=== PATIENT | female | born 1945 | race Caucasian/White ===

== ENCOUNTER 2024-04-21 06:31 | Day surgery (SDC) | payer MEDICARE, SELFPAY ==
[2024-04-19 15:08] VITALS: BMI 28.1
--- NOTE | 2024-04-20 07:00 | EKG_ITS ---
[facility] Test Date: 2024-04-20 Pat Name: CHARLOTTE YUSUF Department: Room: - Gender: Female Tong Carrier: BAMBI : 1945 Requested By: Jomar Krishnan Order Number: [id number] Reading MD: Jomar Krishnan Measurements Intervals [place] Rate: 65 P: FL: QRS: -90 QRSD: 168 T: 57 QT: 500 QTc: 521 Interpretive Statements ELECTRONIC VENTRICULAR PACEMAKER ABNORMAL RHYTHM ECG Compared to ECG 02/07/2024 12:44:39 Atrial-paced complex(es) or rhythm no longer present /store/S0/[id number]/ecg/[id number].pdf
[2024-04-20 13:15] LABS: Basophils # (Auto) 0.1 Thou/mm3 (0.0-0.2); Basophils % (Auto) 1 % (0-2.5); Eosinophils # (Auto) 0.7 Thou/mm3 (0.0-0.5); Eosinophils % (Auto) 10 % (0-10); Hematocrit 38.1 % (36.0-46.0); Hemoglobin 12.3 g/dL (12.0-16.0); Immature Granulocytes % (Auto) 0 % (0-0); Immature Granulocytes Auto 0.02 Thou/mm3 (0.00-0.00); Lymphocytes # (Auto) 1.3 Thou/mm3 (1.0-4.8); Lymphocytes % (Auto) 19 % (10-50); Mean Corpuscular HGB Conc 32.3 g/dl (31.0-37.0); Mean Corpuscular Hemoglobin 28.8 pg (25.0-35.0); Mean Corpuscular Volume 89 fL (80-100); Monocytes # (Auto) 0.8 Thou/mm3 (0.0-0.8); Monocytes % (Auto) 13 % (0-12); Neutrophils # (Auto) 3.8 Thou/mm3 (1.8-7.7); Neutrophils % (Auto) 57 % (37-80); Nucleated Red Blood Cell % 0 /100 WBC (0); Platelet Count 347 Thou/mm3 (140-440); Red Blood Count 4.27 Miln/mm3 (4.00-5.20); White Blood Count 6.7 Thou/mm3 (3.6-11.0)
[2024-04-20 13:27] LABS: Anion Gap 3 (7-16); BUN/Creatinine Ratio 14 Ratio (12-20); Blood Urea Nitrogen 19 mg/dL (9-23); Calcium 9.3 mg/dL (8.3-10.6); Carbon Dioxide 29.1 mMol/L (20.0-31.0); Chloride 106 mMol/L (98-107); Creatinine (Component) 1.4 mg/dL (0.6-1.3); Estimated Creatinine Clearance 31.7 mL/min (>60); Glucose 108 mg/dL (74-106); Osmolality,Calculated 278 (275-295); Potassium 4.1 mMol/L (3.4-5.1); Sodium 138 mMol/L (136-145); eGFR 38 See Note
[2024-04-20 13:29] LABS: INR 1.1 (0.9-1.3); Partial Thromboplastin Time 27.6 Seconds (22.0-36.0)
[2024-04-21] VITALS (10 sets, daily range): BP systolic 115–137; BP diastolic 51–74; PULSE 60–65; RESP 12–16; TEMP 36.1–36.6; O2SAT 93–99
--- NOTE | 2024-04-21 11:00 | PC.NURSE ---
0943 patient is awake, alert, breathing unlabored s/p pacemaker battery exchange under IV moderate sedation, report received from Baldo BLISS. Patient to recover for 2hrs and finish vancomycin antibiotic. No need for arm sing or post op xray per RN report.
--- NOTE | 2024-04-21 12:00 | PC.NURSE ---
1157 patient is awake, alert, breathing unlabored, dressing dry with no bleeding, patient able to ambulate to bathroom and void, able to tolerate food with no nausea or vomiting, vancomycin antibiotic completed,meets discharge criteria, discharge instructions given to patient and sister Darlene, patient discharged home in wheelchair with all belongings.
--- NOTE | 2024-04-22 17:07 | ESOP_ITS ---
RE: CHARLOTTE YUSUF : 1945 DATE OF OPERATION: 04/21/2024 PROCEDURE PERFORMED: 1. Removal and replacement of permanent pacemaker generator, CPT code 78892. 2. Conscious sedation. DIAGNOSES: Status post permanent pacemaker implantation, sick sinus syndrome, pacemaker , elective replacement indicator battery depletion. HISTORY AND INDICATIONS: The patient is an 79-year-old lady with history of CAD, hypertension, sick sinus syndrome, dual-chamber pacemaker implant, syncopal episode, doing fairly well until recently. The patient is found to have elective replacement indicator battery depletion for permanent pacemaker, hence permanent pacemaker generator removal and replacement recommended under conscious sedation. DESCRIPTION OF PROCEDURE: The patient was brought to operating room in cardiac catheterization laboratory. The patient was given conscious sedation. A timeout was taken. Informed consent was obtained. She was given conscious sedation using a 2 mg Versed and 4 mg morphine sulfate was given for analgesia. Left subclavian area was prepared in sterile fashion and given 1% Xylocaine local anesthesia. Left linear incision was made with blunt dissection. Pocket was opened. The generator was successfully removed and the threshold was found to be excellent. After obtaining satisfactory threshold, the new Medtronic pacemaker generator was attached to the leads, positioned in the pocket and subcutaneous tissue was closed using 2-0 chromic continuous suture. Skin was closed using david. The patient tolerated the procedure well. There were no complications. The patient received a gram of vancomycin because allergies TO PENICILLIN AND KEFLEX. The patient will be discharged home same day following the procedure. SUMMARY: Successful removal and replacement of dual-chamber pacemaker generator. The generator that is removed initially implanted in 2013, Medtronic model number [id number], serial number is [id number]. The pacemaker generator that is implanted today is Medtronic MRI safe Verenice XT, serial number is [id number]. Atrial lead is a Medtronic 4574 and RV _ventricular lead is 4074. The P waves are measured to be 6.9 millivolts. The lead impedance 532 ohms in atrium and threshold 1volts, R waves are measured to be 6.3. Lead impedance 1440 and the threshold 1.5 volts. The pacemaker was programmed to MVP protocol AAIR to DDDR 60-120 beats per minute. DT: 09:24:21 TT: 10:06:00 Ref: [id number] - TID: [id number] MTDD
== END 2024-04-21 11:55 | disposition home or self-care (01) ==
PROVIDERS: PCP Family Medicine; Referring Provider Internal Medicine Cardiovascular Disease; Visit Provider Internal Medicine Cardiovascular Disease
PROC: (CPT 33228; principal; 2024-04-21 08:00)
DX: Z45.010 Encounter for checking and testing of cardiac pacemaker pulse generator [battery] (principal); I10 Essential (primary) hypertension; I25.10 Atherosclerotic heart disease of native coronary artery without angina pectoris; Z01.810 Encounter for preprocedural cardiovascular examination; I49.5 Sick sinus syndrome
CPT/HCPCS: 33228; 36415; 80048; 85025; 85610; 85730; 93005; 99152; 99153; A4649; C1785; J0171; J0461; J0690; J1580; J2250; J2270; J2310; J2371; J3490

== ENCOUNTER 2024-06-14 08:33 | Day surgery (SDC) | payer OTHER, SELFPAY ==
--- NOTE | 2024-06-13 10:47 | EKG_ITS ---
[facility] Test Date: 2024-06-13 Pat Name: CHARLOTTE YUSUF Department: Room: - Gender: Female Director Of Design: RTSJC : 1945 Requested By: Jomar Krishnan Order Number: [id number] Reading MD: Jomar Krishnan Measurements Intervals [place] Rate: 67 P: 133 LA: 192 QRS: -1 QRSD: 104 T: 53 QT: 382 QTc: 404 Interpretive Statements ELECTRONIC ATRIAL PACEMAKER INCOMPLETE RIGHT BUNDLE BRANCH BLOCK ANTEROSEPTAL MYOCARDIAL INFARCTION , OF INDETERMINATE AGE Compared to ECG 04/20/2024 13:46:18 Incomplete right bundle-branch block now present Myocardial infarct finding now present Ventricular-paced complex(es) or rhythm no longer present /store/S0/[id number]/ecg/[id number].pdf
[2024-06-13 11:51] LABS: Basophils # (Auto) 0.1 Thou/mm3 (0.0-0.2); Basophils % (Auto) 1 % (0-2.5); Eosinophils # (Auto) 0.6 Thou/mm3 (0.0-0.5); Eosinophils % (Auto) 10 % (0-10); Hematocrit 34.3 % (36.0-46.0); Hemoglobin 11.1 g/dL (12.0-16.0); Immature Granulocytes % (Auto) 0 % (0-0); Immature Granulocytes Auto 0.01 Thou/mm3 (0.00-0.00); Lymphocytes # (Auto) 0.9 Thou/mm3 (1.0-4.8); Lymphocytes % (Auto) 16 % (10-50); Mean Corpuscular HGB Conc 32.4 g/dl (31.0-37.0); Mean Corpuscular Hemoglobin 28.7 pg (25.0-35.0); Mean Corpuscular Volume 89 fL (80-100); Monocytes # (Auto) 0.7 Thou/mm3 (0.0-0.8); Monocytes % (Auto) 12 % (0-12); Neutrophils # (Auto) 3.6 Thou/mm3 (1.8-7.7); Neutrophils % (Auto) 61 % (37-80); Nucleated Red Blood Cell % 0 /100 WBC (0); Platelet Count 281 Thou/mm3 (140-440); RDW Standard Deviation 47.1 fL (36.4-46.3); Red Blood Count 3.87 Miln/mm3 (4.00-5.20); White Blood Count 5.8 Thou/mm3 (3.6-11.0)
[2024-06-13 11:58] LABS: Anion Gap 8 (7-16); BUN/Creatinine Ratio 22 Ratio (12-20); Blood Urea Nitrogen 28 mg/dL (9-23); Calcium 9.4 mg/dL (8.3-10.6); Carbon Dioxide 29.1 mMol/L (20.0-31.0); Chloride 104 mMol/L (98-107); Creatinine (Component) 1.3 mg/dL (0.6-1.3); Glucose 154 mg/dL (74-106); Osmolality,Calculated 289 (275-295); Potassium 4.5 mMol/L (3.4-5.1); Sodium 141 mMol/L (136-145); eGFR 42 See Note
[2024-06-13 12:07] LABS: INR 1.1 (0.9-1.3); Prothrombin Time 11.6 Seconds (9.0-12.2)
[2024-06-14] VITALS (13 sets, daily range): BP systolic 140–203; BP diastolic 62–115; PULSE 60–74; RESP 10–20; TEMP 36.3–36.5; O2SAT 92–100; BMI 28.3
[2024-06-14] MEDS: SODIUM CHLORIDE 0.9% 1000 ML 500 ML 100 ML IV (11:00)
--- NOTE | 2024-06-14 18:06 | ESOP_ITS ---
RE: CHARLOTTE YUSUF : 1945 DATE OF OPERATION: 06/14/2024 PROCEDURES PERFORMED: 1. Diagnostic left heart cardiac catheterization, selective coronary angiogram, left ventricular angiogram, CPT 43480. 2. Conscious sedation for 30-minute duration. 3. Ultrasound-guided access, right radial artery. 4. Intracoronary ultrasound examination of the left main and left circumflex arteries, CPT 41938. 5. Percutaneous coronary intervention, PTCA, stent placement of the proximal left circumflex artery and placement of drug-eluting stent 4.0 x 12 mm Synergy stent. CPT 69502 Preprocedure stenosis 80%, postprocedure 0%. Preprocedure ARTURO flow 3, postprocedure ARTURO flow 3. DIAGNOSES: Crescendo class 3 angina pectoris with maximum medical management and status post multivessel stent placement. HISTORY AND INDICATIONS: The patient is an 79-year-old lady with known history of CAD, 100% occlusion to RCA with recurrent episode of chest pain, shortness of breath, and class 3 angina pectoris despite maximum medical management and _ emergency coronary angiogram was recommended because of patient's angina for assessment of possible PCI and stent placement. DESCRIPTION OF PROCEDURE: The patient was brought to cardiac catheterization lab where she was given 2 mg of Versed and 100 mcg of fentanyl for sedation. Right radial approach was taken. Right radial artery was cannulated by micropuncture technique. A 6-Portuguese Glidesheath was introduced. Selective right and left coronary angiogram, left heart catheterization, left ventricular angiogram performed by 5-Portuguese TIG-4 diagnostic catheter. Diagnostic procedure showed following findings: Right coronary artery is large and dominant showed evidence of stents, which are widely patent. Left coronary system: Left main coronary artery is normal. Left anterior descending artery showed no significant stenosis. Left circumflex artery showed evidence of moderate 80% stenosis of proximal circumflex artery. Not clear whether this is a severe lesion with some calcification and eccentricity. Hence, intracoronary ultrasound exam is recommended. The patient's left ventricular pressure recorded to be 116/10. Aortic pressure 116/80. No gradient across the aortic valve. Left ventricular angiogram showed normal left ventricular wall motion, ejection fraction of 70%. Following diagnostic procedure, the patient was given additional heparin initially 3000, total of 5000 heparin was given. An additional 1000, total of 6000 heparin was given. Loading dose of Plavix was given. A 6-Portuguese JL3.5 guiding catheter used to cannulate the left main coronary artery. A 0.014 Runthrough guidewire was used to cross the lesion successfully. Intracoronary ultrasound exam was performed with [employer] imaging catheter 6-Portuguese system. Intracoronary ultrasound exam showed following findings: The left circumflex artery is 4 mm vessel, narrows down to minimal luminal area less than 4 mm, which is considered severe with calcification, eccentricity, discrete lesion, culprit lesion, hence stent placement recommended. The patient underwent successful stent placement. A 4.0 x 12 mm Synergy stent was deployed successfully after pre-dilating the lesion with 3 mm balloon with 14 atmosphere pressure. Subsequently, intracoronary ultrasound exam showed widely patent stent with good apposition and expansion. Final angiogram showed widely patent circumflex artery. SUMMARY OF FINDINGS: Single-vessel coronary artery with evidence of 80% stenosis of circumflex artery proximal segment, underwent successful PCI and stent placement, 4 x 12 Synergy stent, excellent result, no complications. DT: 16:37:18 TT: 17:52:00 Ref: [id number] - TID: [id number] MTDD
== END 2024-06-14 15:05 | disposition home or self-care (01) ==
PROVIDERS: PCP Family Medicine; Referring Provider Internal Medicine Cardiovascular Disease; Visit Provider Internal Medicine Cardiovascular Disease
PROC: (CPT 93458; principal; 2024-06-14 09:30)
DX: I25.118 Atherosclerotic heart disease of native coronary artery with other forms of angina pectoris (principal); Z01.810 Encounter for preprocedural cardiovascular examination
CPT/HCPCS: 93458; C9600; 36415; 80048; 85025; 85347; 85610; 85730; 93005; A4649; C1725; C1753; C1769; C1874; C1887; C1894; J0171; J0461; J1643; J2250; J2270; J2310; J2371; J3490; J7030; Q9967; A9270; J2305

== ENCOUNTER → 2024-06-21 | Outpatient (CLI) | payer OTHER, SELFPAY ==
[2024-06-21 11:06] LABS: Collection Type, Urine Clean Catch
[2024-06-21 11:26] LABS: Basophils # (Auto) 0.1 Thou/mm3 (0.0-0.2); Basophils % (Auto) 1 % (0-2.5); Eosinophils # (Auto) 0.7 Thou/mm3 (0.0-0.5); Eosinophils % (Auto) 10 % (0-10); Hematocrit 36.2 % (36.0-46.0); Hemoglobin 11.6 g/dL (12.0-16.0); Immature Granulocytes % (Auto) 0 % (0-0); Immature Granulocytes Auto 0.02 Thou/mm3 (0.00-0.00); Lymphocytes % (Auto) 14 % (10-50); Mean Corpuscular Hemoglobin 28.4 pg (25.0-35.0); Mean Corpuscular Volume 89 fL (80-100); Monocytes # (Auto) 0.9 Thou/mm3 (0.0-0.8); Monocytes % (Auto) 13 % (0-12); Neutrophils # (Auto) 4.1 Thou/mm3 (1.8-7.7); Neutrophils % (Auto) 61 % (37-80); Nucleated Red Blood Cell % 0 /100 WBC (0); Platelet Count 308 Thou/mm3 (140-440); RDW Standard Deviation 47.2 fL (36.4-46.3); Red Blood Count 4.09 Miln/mm3 (4.00-5.20); White Blood Count 6.7 Thou/mm3 (3.6-11.0)
[2024-06-21 11:45] LABS: Bilirubin,Urine Negative (Negative); Blood,Urine Negative (Negative); Clarity,Urine Clear (Clear/Hazy); Color,Urine Yellow (Lt Yel-Yel); Glucose, Urine Negative (Negative); Hyaline Casts,Urine < 1 /hpf (0-1); Ketones,Urine Negative (Negative); Leukocyte Esterase,Urine Positive (Negative); Nitrite,Urine Negative (Negative); Protein,Urine Trace (Neg - Trace); RBC,Urine 5 /hpf (0-3); Specific Gravity,Urine 1.029 (1.001-1.035); Squamous Epithelial Cell,Urine 10 /hpf (0-5); Urobilinogen,Urine Negative mg/dL (0.0-1.0); WBC,Urine 2 /hpf (0-5)
[2024-06-21 11:51] LABS: Thyroid Stimulating Hormone 2.58 uIU/mL (0.55-4.78)
[2024-06-21 11:54] LABS: Creatinine MALB Rnd Ur 161 mg/dL (30-125); Microalbumin Creat Ratio 9 mg/gCrea (<30); Microalbumin, Random Urine 15 mg/L (0-300)
[2024-06-21 12:06] LABS: Albumin, Serum 4.4 gm/dL (3.4-4.8); Anion Gap 6 (7-16); BUN/Creatinine Ratio 26 Ratio (12-20); Blood Urea Nitrogen 39 mg/dL (9-23); Calcium 9.7 mg/dL (8.3-10.6); Calcium (Corrected) 9.7 mg/dL (8.5-10.1); Carbon Dioxide 31.1 mMol/L (20.0-31.0); Cardiac Risk Estimate 2.3 RATIO (3.7-5.6); Chloride 105 mMol/L (98-107); Cholesterol 164 mg/dL (132-200); Creatinine (Component) 1.5 mg/dL (0.6-1.3); Glucose 97 mg/dL (74-106); HDL Cholesterol 71 mg/dL (40-60); LDL Cholesterol,Calculated 79 mg/dL (0-130); Osmolality,Calculated 292 (275-295); Phosphorous 4.2 mg/dL (2.4-5.1); Potassium 4.5 mMol/L (3.4-5.1); Sodium 142 mMol/L (136-145); Triglycerides 71 mg/dL (30-150); eGFR 35 See Note
[2024-06-21 12:07] LABS: Parathyroid Hormone Intact 73.2 pg/ml (18.5-88.0)
== END | disposition home or self-care (01) ==
LOC: COPL 10:07
PROVIDERS: PCP Family Medicine; Referring Provider Internal Medicine; Visit Provider Internal Medicine
DX: I12.9 Hypertensive chronic kidney disease with stage 1 through stage 4 chronic kidney disease, or unspecified chronic kidney disease (principal); N18.30 Chronic kidney disease, stage 3 unspecified; E78.5 Hyperlipidemia, unspecified; R40.0 Somnolence
CPT/HCPCS: 36415; 80061; 80069; 81001; 82043; 82570; 83090; 83970; 84443; 85025

== ENCOUNTER → 2024-07-03 | Outpatient (CLI) | payer OTHER, SELFPAY ==
--- NOTE | 2024-07-03 10:22 | XR_ITS ---
Examination:Left hip AP, lateral, AP pelvis 3 views Technique: Hip AP lateral, AP pelvis, 3 views Exam date and time:July 03, 2024 1032 hours INDICATIONS: Patient fell today with into the left hip, left hip pain. FINDINGS: No left hip fracture or hip dislocation Right hip bones of the pelvis intact IMPRESSION: No acute hip or pelvic fracture Suggest repeat AP pelvis in 1 day as clinically warranted.
== END | disposition home or self-care (01) ==
LOC: CDIM 10:00
PROVIDERS: PCP Family Medicine; Referring Provider Family Medicine; Visit Provider Family Medicine
DX: S79.912A Unspecified injury of left hip, initial encounter (principal); W19.XXXA Unspecified fall, initial encounter
CPT/HCPCS: 73502

== ENCOUNTER → 2024-09-11 | Outpatient (CLI) | payer OTHER, SELFPAY ==
[2024-09-11 10:43] LABS: Basophils % (Auto) 1 % (0-2.5); Eosinophils # (Auto) 0.5 Thou/mm3 (0.0-0.5); Eosinophils % (Auto) 9 % (0-10); Hematocrit 36.4 % (36.0-46.0); Hemoglobin 11.6 g/dL (12.0-16.0); Immature Granulocytes % (Auto) 0 % (0-0); Immature Granulocytes Auto 0.01 Thou/mm3 (0.00-0.00); Lymphocytes # (Auto) 0.9 Thou/mm3 (1.0-4.8); Lymphocytes % (Auto) 17 % (10-50); Mean Corpuscular HGB Conc 31.9 g/dl (31.0-37.0); Mean Corpuscular Volume 88 fL (80-100); Monocytes # (Auto) 0.7 Thou/mm3 (0.0-0.8); Monocytes % (Auto) 13 % (0-12); Neutrophils # (Auto) 3.3 Thou/mm3 (1.8-7.7); Neutrophils % (Auto) 60 % (37-80); Nucleated Red Blood Cell % 0 /100 WBC (0); Platelet Count 260 Thou/mm3 (140-440); RDW Standard Deviation 49.9 fL (36.4-46.3); Red Blood Count 4.15 Miln/mm3 (4.00-5.20); White Blood Count 5.5 Thou/mm3 (3.6-11.0)
[2024-09-11 10:48] LABS: Parathyroid Hormone Intact 71.6 pg/ml (18.5-88.0)
[2024-09-11 11:06] LABS: Alanine Aminotransferase 37 U/L (10-49); Albumin/Globulin Ratio 1.8 (1.2-2.2); Alkaline Phosphatase 99 U/L (46-116); Anion Gap 8 (7-16); Aspartate Amino Transferase 48 U/L (0-34); BUN/Creatinine Ratio 26 Ratio (12-20); Bilirubin,Total 0.6 mg/dL (0.3-1.2); Blood Urea Nitrogen 36 mg/dL (9-23); Calcium 9.2 mg/dL (8.3-10.6); Calcium (Corrected) 9.2 mg/dL (8.5-10.1); Carbon Dioxide 31.3 mMol/L (20.0-31.0); Cardiac Risk Estimate 1.9 RATIO (3.7-5.6); Chloride 105 mMol/L (98-107); Cholesterol 126 mg/dL (132-200); Creatinine (Component) 1.4 mg/dL (0.6-1.3); Globulin 2.2 gm/dL (2.3-3.5); Glucose 111 mg/dL (74-106); HDL Cholesterol 67 mg/dL (40-60); LDL Cholesterol,Calculated 52 mg/dL (0-130); Osmolality,Calculated 296 (275-295); Potassium 4.4 mMol/L (3.4-5.1); Sodium 144 mMol/L (136-145); Total Protein 6.2 gm/dL (5.7-8.2); Triglycerides 36 mg/dL (30-150); eGFR 38 See Note
== END | disposition home or self-care (01) ==
LOC: COPL 09:12
PROVIDERS: PCP Family Medicine; Referring Provider Internal Medicine; Visit Provider Internal Medicine
DX: I12.9 Hypertensive chronic kidney disease with stage 1 through stage 4 chronic kidney disease, or unspecified chronic kidney disease (principal); N18.30 Chronic kidney disease, stage 3 unspecified; E78.5 Hyperlipidemia, unspecified
CPT/HCPCS: 36415; 80053; 80061; 83970; 85025

== ENCOUNTER → 2025-01-01 | Outpatient (CLI) | payer OTHER, SELFPAY ==
[2025-01-01 09:47] LABS: Collection Type, Urine Clean Catch
[2025-01-01 10:21] LABS: Basophils # (Auto) 0.1 Thou/mm3 (0.0-0.2); Basophils % (Auto) 1 % (0-2.5); Eosinophils # (Auto) 0.3 Thou/mm3 (0.0-0.5); Eosinophils % (Auto) 6 % (0-10); Hematocrit 37.4 % (36.0-46.0); Hemoglobin 12.2 g/dL (12.0-16.0); Immature Granulocytes Auto 0.03 Thou/mm3 (0.00-0.00); Lymphocytes # (Auto) 1.0 Thou/mm3 (1.0-4.8); Lymphocytes % (Auto) 19 % (10-50); Mean Corpuscular HGB Conc 32.6 g/dl (31.0-37.0); Mean Corpuscular Hemoglobin 29.0 pg (25.0-35.0); Mean Corpuscular Volume 89 fL (80-100); Monocytes # (Auto) 0.6 Thou/mm3 (0.0-0.8); Monocytes % (Auto) 12 % (0-12); Neutrophils # (Auto) 3.3 Thou/mm3 (1.8-7.7); Neutrophils % (Auto) 61 % (37-80); Nucleated Red Blood Cell # 0.00 Thou/mm3 (0.00-0.00); Nucleated Red Blood Cell % 0 /100 WBC (0); Platelet Count 301 Thou/mm3 (140-440); RDW Standard Deviation 48.1 fL (36.4-46.3); Red Blood Count 4.21 Miln/mm3 (4.00-5.20); White Blood Count 5.4 Thou/mm3 (3.6-11.0)
[2025-01-01 10:22] LABS: Creatinine,Random Urine 120 mg/dL (30-125)
[2025-01-01 10:23] LABS: Bilirubin,Urine Negative (Negative); Blood,Urine Negative (Negative); Clarity,Urine Clear (Clear/Hazy); Color,Urine Lt-Yellow (Lt Yel-Yel); Glucose, Urine Negative (Negative); Hyaline Casts,Urine < 1 /hpf (0-1); Ketones,Urine Negative (Negative); Leukocyte Esterase,Urine Positive (Negative); Nitrite,Urine Negative (Negative); PH,Urine 7.5 (5.0-7.0); Protein,Urine Negative (Neg - Trace); RBC,Urine 1 /hpf (0-3); Renal Epithelial Cells,Urine < 1 /hpf (0-5); Specific Gravity,Urine 1.018 (1.001-1.035); Squamous Epithelial Cell,Urine 13 /hpf (0-5); Urobilinogen,Urine Negative mg/dL (0.0-1.0); WBC,Urine 11 /hpf (0-5)
[2025-01-01 10:25] LABS: Parathyroid Hormone Intact 65.2 pg/ml (18.5-88.0)
[2025-01-01 10:29] LABS: Alanine Aminotransferase 23 U/L (10-49); Albumin, Serum 4.5 gm/dL (3.4-4.8); Albumin/Globulin Ratio 1.7 (1.2-2.2); Alkaline Phosphatase 84 U/L (46-116); Anion Gap 10 (7-16); Aspartate Amino Transferase 42 U/L (0-34); BUN/Creatinine Ratio 14 Ratio (12-20); Bilirubin,Total 0.4 mg/dL (0.3-1.2); Blood Urea Nitrogen 19 mg/dL (9-23); Calcium 9.9 mg/dL (8.3-10.6); Calcium (Corrected) 9.9 mg/dL (8.5-10.1); Carbon Dioxide 29.3 mMol/L (20.0-31.0); Chloride 101 mMol/L (98-107); Creatinine (Component) 1.4 mg/dL (0.6-1.3); Globulin 2.6 gm/dL (2.3-3.5); Glucose 100 mg/dL (74-106); Osmolality,Calculated 281 (275-295); Phosphorous 3.6 mg/dL (2.4-5.1); Potassium 4.7 mMol/L (3.4-5.1); Sodium 140 mMol/L (136-145); Thyroid Stimulating Hormone 2.33 uIU/mL (0.55-4.78); Total Protein 7.1 gm/dL (5.7-8.2); eGFR 38 See Note
[2025-01-01 10:35] LABS: Iron 41 mcg/dL (50-170); T4 (Thyroxine) 8.0 mcg/dL (4.5-10.9)
[2025-01-01 10:50] LABS: Vitamin B12 > 2000 pg/mL (211-911)
[2025-01-01 11:07] LABS: Glucose Estimated Average 140 mg/dL (80-131); Hemoglobin A1C 6.5 % Hgb (4.8-6.0)
== END | disposition home or self-care (01) ==
PROVIDERS: PCP Family Medicine; Referring Provider Internal Medicine; Visit Provider Family Medicine
DX: R55 Syncope and collapse (principal); I12.9 Hypertensive chronic kidney disease with stage 1 through stage 4 chronic kidney disease, or unspecified chronic kidney disease; N18.30 Chronic kidney disease, stage 3 unspecified; R53.83 Other fatigue
CPT/HCPCS: 36415; 80053; 81001; 82570; 82607; 83036; 83540; 83970; 84100; 84436; 84443; 85025

== ENCOUNTER 2025-01-10 12:52 | Emergency (ER) | payer OTHER, SELFPAY ==
[2025-01-10 12:53] VITALS: BMI 27.1
[2025-01-10 14:15] VITALS: BP 123/75; PULSE 83; RESP 18; TEMP 36.8; O2SAT 98
--- NOTE | 2025-01-10 14:24 | PD.EDRME ---
Rapid Medical Screening Exam RME Arrival date/time: 01/10/25 12:52 Chief Complaint: Headache Vital signs: Vital Signs Temperature 98.3 F 01/10/25 14:15 Pulse Rate 83 01/10/25 14:15 Respiratory Rate 18 01/10/25 14:15 Blood Pressure 123/75 01/10/25 14:15 Pulse Oximetry (%) 98 01/10/25 14:15 Oxygen Delivery Method Room Air 01/10/25 14:15 Pulse ox is 98% room air Vital signs reviewed by provider: Yes RME Narrative: 79-year-old female presents to the ED with a complaint of a headache that she describes as global, she has had a headache for 3 weeks and also has that she has had blurry vision denies a change in speech or change in her hearing.
--- NOTE | 2025-01-10 14:26 | XR_ITS ---
Examination: CT brain head without contrast. 2-D sagittal coronal reconstructions Date and time of exam:January 10, 2025 1502 hours Comparison 02/17/2023 INDICATIONS: Onset severe headaches beginning 3 weeks ago CTDI: vol (mGy):46.9 DLP: (mGycm):928 Technique: Multiple CT axial sections of the brain have been obtained, 5 mm slice thickness. Contrast has not been administered. 2-D sagittal, coronal reconstructions have been obtained Low dose protocols were performed. One or more of the following dose reduction techniques were used; automated exposure control, adjustment of the mA and/or KV according to patient size, use of iterative reconstruction technique. Findings: No significant ventricular enlargement. Intra-axial or extra-axial hemorrhage density is not seen. No mass effect or midline shift Basal cisterns are not remarkable. Fourth ventricle is midline. Cranial vault intact. 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
[2025-01-10 15:05] LABS: Basophils # (Auto) 0.0 Thou/mm3 (0.0-0.2); Basophils % (Auto) 0 % (0-2.5); Eosinophils # (Auto) 0.0 Thou/mm3 (0.0-0.5); Eosinophils % (Auto) 0 % (0-10); Hematocrit 36.9 % (36.0-46.0); Hemoglobin 12.0 g/dL (12.0-16.0); Immature Granulocytes Auto 0.02 Thou/mm3 (0.00-0.00); Lymphocytes # (Auto) 1.1 Thou/mm3 (1.0-4.8); Lymphocytes % (Auto) 16 % (10-50); Mean Corpuscular HGB Conc 32.5 g/dl (31.0-37.0); Mean Corpuscular Hemoglobin 28.8 pg (25.0-35.0); Mean Corpuscular Volume 89 fL (80-100); Monocytes # (Auto) 0.4 Thou/mm3 (0.0-0.8); Monocytes % (Auto) 6 % (0-12); Neutrophils # (Auto) 5.4 Thou/mm3 (1.8-7.7); Neutrophils % (Auto) 78 % (37-80); Nucleated Red Blood Cell # 0.00 Thou/mm3 (0.00-0.00); Nucleated Red Blood Cell % 0 /100 WBC (0); Platelet Count 311 Thou/mm3 (140-440); RDW Standard Deviation 48.8 fL (36.4-46.3); Red Blood Count 4.17 Miln/mm3 (4.00-5.20); White Blood Count 6.9 Thou/mm3 (3.6-11.0)
[2025-01-10 15:26] LABS: Alanine Aminotransferase 20 U/L (10-49); Albumin, Serum 4.1 gm/dL (3.4-4.8); Albumin/Globulin Ratio 1.7 (1.2-2.2); Alkaline Phosphatase 91 U/L (46-116); Anion Gap 7 (7-16); Aspartate Amino Transferase 29 U/L (0-34); BUN/Creatinine Ratio 21 Ratio (12-20); Bilirubin,Total 0.4 mg/dL (0.3-1.2); Blood Urea Nitrogen 31 mg/dL (9-23); Calcium 9.7 mg/dL (8.3-10.6); Calcium (Corrected) 9.7 mg/dL (8.5-10.1); Carbon Dioxide 30.9 mMol/L (20.0-31.0); Chloride 100 mMol/L (98-107); Creatinine (Component) 1.5 mg/dL (0.6-1.3); Estimated Creatinine Clearance 29.0 mL/min (>60); Globulin 2.4 gm/dL (2.3-3.5); Glucose 151 mg/dL (74-106); Osmolality,Calculated 285 (275-295); Potassium 4.5 mMol/L (3.4-5.1); Sodium 138 mMol/L (136-145); Total Protein 6.5 gm/dL (5.7-8.2); eGFR 35 See Note
--- NOTE | 2025-01-10 15:43 | PD.EDHA ---
ED Headache RME/HPI General Chief Complaint: Headache Stated Complaint: SEVERE HEADACHE X 3 WKS Arrival date/time: 01/10/25 12:52 RME / HPI RME / HPI Narrative: 79-year-old female presents to the ED with a complaint of a headache that she describes as global, she has had a headache for 3 weeks and also has that she has had blurry vision denies a change in speech or change in her hearing. DR. COONEY MAIN ED EVALUATION 79 year old female with history of atrial fibrillation, CAD s/p PCI, s/p pacemaker placement, hypertension, s/p gastric bypass presents to the ED for evaluation of headache today. Reportedly 3 weeks ago she was diagnosed with COVID and during that time developed the headache that has remained constant since. Described as a dull ache that is gradually worsening. Accompanied by nausea, diarrhea, cough, and sore throat. Additionally reports blurred vision x 1 week. States she has taken Tylenol and [place] without improvement in pain, no other associated symptoms reported. Denies any unilateral weakness, changes in gait or speech, fevers, chills, chest pain, shortness of breath, or urinary symptoms. Related Data Home Medications ?Medication ?Instructions ?Recorded ?Confirmed metoprolol tartrate 50 mg tablet 100 mg PO QDAY #0 tabs 05/22/14 04/21/24 wqpldtihvewq-Yf-fops-minerals 18 1 cap PO DAILY SUPPLEMENT ##0 05/22/14 04/21/24 mg-0.4 mg tablet (Women's Daily Multivitamin) cyanocobalamin (vitamin B-12) 1,000 mcg PO QDAY ##0 04/12/15 04/21/24 1,000 mcg tablet,extended release (Vitamin B-12 ER) allopurinol 100 mg tablet 100 mg PO QDAY ##90 08/05/16 04/21/24 bumetanide 1 mg tablet 1 mg PO EVERYOTHERDAY #0 tabs 09/30/16 04/21/24 calcitriol 0.5 mcg capsule 0.5 mcg PO QDAY 08/12/22 04/21/24 fluticasone propionate 50 1 spray intranasal QDAY 08/12/22 04/21/24 mcg/actuation nasal spray,suspension gabapentin 300 mg capsule 100 mg PO QPM 08/12/22 04/21/24 hydroxyzine HCl 25 mg tablet 25 mg PO QDAY PRN Allergy Symptoms 08/12/22 04/21/24 sertraline 50 mg tablet 50 mg PO QPM 08/12/22 04/21/24 acetaminophen 500 mg tablet 500 mg PO PRN PRN pain 09/03/23 04/21/24 amiodarone 200 mg tablet 200 mg PO QPM 09/03/23 04/21/24 diltiazem HCl 180 mg capsule,24 180 mg PO QPM 09/03/23 04/21/24 hr,extended release pantoprazole 20 mg tablet,delayed 20 mg PO QDAY 09/03/23 04/21/24 release clopidogrel 75 mg tablet 75 mg PO QDAY 04/19/24 04/19/24 ashwagandha extract 500 mg capsule 1 mg PO QDAY 04/21/24 04/21/24 aspirin 81 mg tablet 81 mg PO QDAY 04/21/24 04/21/24 azelastine 137 mcg (0.1 %) nasal 1 spray intranasal BID 04/21/24 04/21/24 spray biotin 10,000 mcg-keratin 100 mg 1 tab PO QDAY 04/21/24 04/21/24 tablet calcium 84 mg-magnesium 24 mg-D3 5 ml PO QDAY 04/21/24 04/21/24 10 mcg-zinc 0.7 mg/5 mL liquid cetirizine 10 mg tablet (Allergy 25 mg PO QDAY 04/21/24 04/21/24 Relief (cetirizine)) cholecalciferol (vitamin D3) 50 50 mcg PO BID 04/21/24 04/21/24 mcg (2,000 unit) tablet (Vitamin D3) cyanocobalamin-liver extract tablet 1 tab PO QDAY 04/21/24 04/21/24 glucosamine sulf dipot 1 cap PO QDAY 04/21/24 04/21/24 chlr,msm,chond 550 mg-C 30 mg-jose 1 mg capsule (Glucosamine Chondroitin) guar gum 1 tbsp PO QDAY 04/21/24 04/21/24 latanoprost 0.005 % eye drops 1 drp ophthalmic (eye) QPM 04/21/24 04/21/24 magnesium 250 mg tablet 250 mg PO QDAY 04/21/24 04/21/24 nitroglycerin 0.4 mg sublingual 0.4 mg buccal Q5MIN 04/21/24 04/21/24 tablet (Nitrostat) polyethylene glycol 3350 17 gram 17 g PO PRN PRN Constipation 04/21/24 04/21/24 oral powder packet (ClearLax) turmeric root extract 500 mg 1,000 mg PO QDAY 04/21/24 04/21/24 capsule vitamin B6-vitamin E-magnesium 1 tab PO QDAY 04/21/24 04/21/24 tablet Previous Rx's ?Medication ?Instructions ?Recorded prochlorperazine maleate 5 mg 5 mg PO TID PRN headache and 01/10/25 tablet (Compazine) nausea #20 tabs Allergies Allergy/AdvReac Type Severity Reaction Status Date / Time Penicillins Allergy Severe THROAT Verified 01/10/25 12:57 SWELLING AND ITCHING milk Allergy Mild Flatulence Verified 01/10/25 12:57 latex Allergy Unknown RASH,ITCH Verified 01/10/25 12:57 fentanyl Allergy Weakness Verified 01/10/25 12:57 BEE STING Allergy Mild ANAPHYLACTIC Uncoded 01/10/25 12:57 SHOCK WHITE FACED HORNETS Allergy Mild ANAPHYLACTIC Uncoded 01/10/25 12:57 SHOCK CONTRAST DYE Allergy Unknown K PROB Uncoded 01/10/25 12:57 SHUT DOWN KIDNEYS Review of Systems Review of Systems Systems Reviewed: All systems reviewed, normal except as documented Past Medical History Past Medical History CARDIAC: Positive Cardiac Disorders, Cardiac Arrhythmia, Hypertension and Varicose Veins RESPIRATORY: Positive Sleep Apnea (in past, current test stated no sleep apnea) GASTROINTESTINAL: Positive Gastrointestinal Disorders and Hemorrhoids GENITOURINARY: Positive Genitourinary Disorders and Renal Disease (caused by contrast) REPRODUCTIVE: Positive Endometriosis, Previous Pregnancies (x4 lost 1) and Uterine Prolapse MUSCULOSKELETAL: Positive Musculoskeletal Disorders, Arthritis (osteoarthritis), Degenerative Disk Disease, Carpal Tunnel Syndrome and Fibromyalgia ENT: Positive Cataracts and Glaucoma PSYCHO/SOCIAL: Positive Depression, Anxiety and Depression OTHER HISTORY: Positive Anesthesia Reactions (vomiting) Family History FAMILY HISTORY: Positive Family Psychiatric Problems, Family Respiratory Disorders, Family Cardiac Disorders, Family Cancer and Family Surgery Surgical History SURGICAL: Positive Cardiac Surgery, Vascular Surgery, Coronary Stent, Pacemaker, Angiogram, Endocrine Surgery, Eye Surgery, Nose Surgery, Oral Surgery, Tonsillectomy, Abdominal Surgery, Gastric Bypass Surgery, Lumpectomy and Hysterectomy Social History SMOKING STATUS: Former smoker ED Exam Narrative Physical exam: Constitutional: Awake, alert, nontoxic, no acute distress HEENT: NC, AT, EOMI Neck: Supple CV: RRR, no m/r/g Lungs: CTAB, no w/r/r, no respiratory distress. Abd: Soft, NT, NT, no HSM noted to palpation Extremities: No deformities, no edema noted Neuro: AAOx3, CN 2-12 GIBL, no acute neuro deficit noted. Skin: Warm, dry, intact Course Course Course Narrative: 1654h: Labs reviewed?no significant change compared with previous. CT head is negative. Patient currently neurologically intact. Patient notes that symptoms have worsened in the past 2 weeks. Did discuss obtaining MRI brain for further evaluation however patient is reluctant to pursue this option. Wanting to go home at this time. Did encourage patient that if symptoms continue to worsen, this would be the next step in evaluation that she should obtain. Patient states that she will follow-up with her doctor to discuss further should she have worsening symptoms. Have offered prescription for Compazine for home to be used in addition to other home meds. Should she have any worsening symptoms, new neurologic symptoms, etc., would recommend return for reevaluation. Quality Measures none Orders Category Date Time Status CT head/brain wo con Stat Exams 01/10/25 14:26 Completed CBC Stat Lab 01/10/25 14:43 Completed Comprehensive Metabolic Panel Stat Lab 01/10/25 14:43 Completed Urinalysis Stat Lab 01/10/25 15:50 Completed Ketorolac Inj [Toradol Inj] Med 01/10/25 16:53 Discontinued 30 mg IM X1 ONE Prochlorperazine Inj [Compazine Inj] Med 01/10/25 16:53 Discontinued 10 mg IM X1 ONE Vital Signs Vital signs: Vital Signs Temperature 98.3 F 01/10/25 14:15 Pulse Rate 83 01/10/25 14:15 Respiratory Rate 18 01/10/25 14:15 Blood Pressure 123/75 01/10/25 14:15 Pulse Oximetry (%) 98 01/10/25 14:15 Oxygen Delivery Method Room Air 01/10/25 14:15 Pulse ox is 98% on room air which is adequate. Headache MDM Narrative MDM Narrative:: Mariah Will am scribing for and in the presence of Dr. Cooney. Patient data External records reviewed:: [facility] previous records (I reviewed admission 02/18/2023 through 02/19/2023) Clinical information provided by:: patient Social determinants that could affect healthcare access:: none Patient has the following chronic illnesses:: atrial fibrillation, CAD s/p PCI, s/p pacemaker placement, hypertension, s/p gastric bypass How is presenting disease/condition affected by chronic disease/condition?: exacerbated by Evaluation data The following diagnostics were reviewed and interpreted by me:: lab results Lab and/or radiology exams considered but not ordered:: None Interpretation Summary: Ordering Physician: Owen Molina PA-C Date of Service: 01/10/25 Procedure(s): CT head/brain wo con Accession Number(s): [id number] cc: Ramone Cevallos MD; Owen Molina PA-C; Hellen Israel MD~ Examination: CT brain head without contrast. 2-D sagittal coronal reconstructions Date and time of exam:January 10, 2025 1502 hours Comparison 02/17/2023 INDICATIONS: Onset severe headaches beginning 3 weeks ago CTDI: vol (mGy):46.9 DLP: (mGycm):928 Technique: Multiple CT axial sections of the brain have been obtained, 5 mm slice thickness. Contrast has not been administered. 2-D sagittal, coronal reconstructions have been obtained Low dose protocols were performed. One or more of the following dose reduction techniques were used; automated exposure control, adjustment of the mA and/or KV according to patient size, use of iterative reconstruction technique. Findings: No significant ventricular enlargement. Intra-axial or extra-axial hemorrhage density is not seen. No mass effect or midline shift Basal cisterns are not remarkable. Fourth ventricle is midline. Cranial vault intact. 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 Dictated By: Ramone Cevallos MD Signed By: <Electronically signed by Ramone Cevallos MD in [place]> 01/10/25 1515 Medications / Prescriptions Medications or Prescriptions considered but not ordered:: None Medication administrations:: Medication Administration History Discontinued Medications Ketorolac Tromethamine (Ketorolac Inj 60 Mg/2 Ml Vial) 30 mg IM X1 ONE Stop: 01/10/25 16:54 Prochlorperazine Edisylate (Prochlorperazine Inj 5 Mg/Ml Vial 2 Ml) 10 mg IM X1 ONE; Protocol Stop: 01/10/25 16:54 See above Consultations Consultation(s) initiated? (list below): No Diagnosis Differential diagnosis headache: migraine, tension headache, subarachnoid hemorrhage and headache Most likely diagnosis given after review of the tests above:: Headache Recent covid illness Admission Indicated Admission indicated?: not indicated Admission Request Was there a request for admission?: No Disposition Plan Disposition Plan: Discharge Discharge Attestation Discharge Attestation: The patient and all family members were given an opportunity to ask questions and understood the discharge instructions. Discharge instructions specifically effects, indications for sooner follow up or return to the emergency department, and the expected course of current diagnosis. Patient condition: Stable Discharge Plan Plan Patient Disposition: HOME (Self Care) Patient condition on transfer: Stable Prescriptions/Referrals Prescriptions/Med Rec: New prochlorperazine maleate [Compazine] 5 mg tablet 5 mg PO TID PRN (Reason: headache and nausea) Qty: 20 0RF No Action metoprolol tartrate 50 MG tablet 100 mg PO QDAY Qty: 0 Women's Daily Multivitamin 1 EACH tablet 1 cap PO DAILY Qty: 0 cyanocobalamin (vitamin B-12) [Vitamin B-12] 1,000 MCG tablet extended release 1,000 mcg PO QDAY Qty: 0 allopurinol 100 MG tablet 100 mg PO QDAY Qty: 90 bumetanide 1 MG tablet 1 mg PO EVERYOTHERDAY Qty: 0 amiodarone 200 mg Tablet 200 mg PO QPM diltiazem HCl 180 mg Capsule,Extended Release 24 Hr 180 mg PO QPM acetaminophen 500 mg Tablet 500 mg PO PRN PRN (Reason: pain) pantoprazole 20 mg Tablet,Delayed Release (Dr/Ec) 20 mg PO QDAY clopidogrel 75 mg Tablet 75 mg PO QDAY latanoprost 0.005 % Drops 1 drp OPHTHALMIC (EYE) QPM nitroglycerin [Nitrostat] 0.4 mg Tablet, Sublingual 0.4 mg BUCCAL Q5MIN Rx Instructions: do not exceed 3 doses azelastine 137 mcg (0.1 %) [place],Non-Aerosol 1 spray INTRANASAL BID Rx Instructions: administer into each nostril polyethylene glycol 3350 [ClearLax] 17 gram Powder In Packet 17 g PO PRN PRN (Reason: Constipation) cetirizine [Allergy Relief (cetirizine)] 10 mg Tablet 25 mg PO QDAY guar gum Packet 1 tbsp PO QDAY Rx Instructions: mix into at least 4 oz water or juice before administering magnesium 250 mg Tablet 250 mg PO QDAY aspirin 81 mg Tablet 81 mg PO QDAY vitamin B6-vitamin E-magnesium Tablet 1 tab PO QDAY cyanocobalamin-liver extract Tablet 1 tab PO QDAY cholecalciferol (vitamin D3) [Vitamin D3] 50 mcg (2,000 unit) Tablet 50 mcg PO BID turmeric root extract 500 mg Capsule 1,000 mg PO QDAY biotin-keratin 10,000-100 mcg-mg Tablet 1 tab PO QDAY Glucosamine Chondroitin 550-30-1 mg Capsule 1 cap PO QDAY ashwagandha extract 500 mg Capsule 1 mg PO QDAY calcium lif-[id number]-W3-zinc 84 mg-24 mg- 10 mcg/5 mL Liquid 5 ml PO QDAY calcitriol 0.5 mcg Capsule 0.5 mcg PO QDAY Rx Instructions: 2 x a week gabapentin 300 mg Capsule 100 mg PO QPM hydroxyzine HCl 25 mg Tablet 25 mg PO QDAY PRN (Reason: Allergy Symptoms) fluticasone propionate 50 mcg/actuation [place],Suspension 1 spray INTRANASAL QDAY sertraline 50 mg Tablet 50 mg PO QPM Referrals: Hellen Ricketts MD [Primary Care Provider] - In 1 week Problem List Clinical Impression: Headache Patient/Caregiver Discharge Instructions Education Materials: Self-Care for Headaches Additional Instructions: Return to emergency department for any worsening symptoms including severe headache, vomiting unable to keep fluids down, difficulty ambulating worse than baseline, etc Print Language: Frisian Stand Alone Forms: Geeta Award Info., Patient Portal Info Letter
[2025-01-10 16:18] LABS: Collection Type, Urine Clean Catch; Squamous Epithelial Cell,Urine 0 /hpf (0-5)
[2025-01-10 16:25] LABS: Bilirubin,Urine Negative (Negative); Blood,Urine Negative (Negative); Clarity,Urine Clear (Clear/Hazy); Color,Urine Colorless (Lt Yel-Yel); Glucose, Urine Negative (Negative); Hyaline Casts,Urine < 1 /hpf (0-1); Ketones,Urine Negative (Negative); Leukocyte Esterase,Urine Negative (Negative); Nitrite,Urine Negative (Negative); PH,Urine 6.0 (5.0-7.0); Protein,Urine Negative (Neg - Trace); RBC,Urine 1 /hpf (0-3); Specific Gravity,Urine 1.007 (1.001-1.035); Urobilinogen,Urine Negative mg/dL (0.0-1.0); WBC,Urine < 1 /hpf (0-5)
== END 2025-01-10 18:09 | disposition home or self-care (01) ==
PROVIDERS: Physician Assistant; Emergency Provider Family Medicine; PCP Family Medicine
DX: R51.9 Headache, unspecified (principal); I25.10 Atherosclerotic heart disease of native coronary artery without angina pectoris; Z95.0 Presence of cardiac pacemaker; Z95.5 Presence of coronary angioplasty implant and graft; I10 Essential (primary) hypertension; I48.91 Unspecified atrial fibrillation
CPT/HCPCS: 36415; 70450; 80053; 81001; 85025; 99283

== ENCOUNTER → 2025-05-04 | Outpatient (CLI) | payer OTHER, SELFPAY ==
[2025-05-04 08:51] LABS: Parathyroid Hormone Intact 73.4 pg/ml (18.5-88.0)
[2025-05-04 08:56] LABS: Albumin, Serum 4.2 gm/dL (3.4-4.8); Anion Gap 8 (7-16); BUN/Creatinine Ratio 19 Ratio (12-20); Blood Urea Nitrogen 25 mg/dL (9-23); Calcium 8.9 mg/dL (8.3-10.6); Calcium (Corrected) 8.9 mg/dL (8.5-10.1); Carbon Dioxide 27.7 mMol/L (20.0-31.0); Chloride 108 mMol/L (98-107); Creatinine (Component) 1.3 mg/dL (0.6-1.3); Glucose 115 mg/dL (74-106); Osmolality,Calculated 292 (275-295); Phosphorous 3.5 mg/dL (2.4-5.1); Potassium 4.2 mMol/L (3.4-5.1); Sodium 144 mMol/L (136-145); eGFR 41 See Note
[2025-05-04 08:57] LABS: Vitamin D 25 Hydroxy Total 54.3 ng/mL (7.3-40.2)
== END | disposition home or self-care (01) ==
PROVIDERS: PCP Family Medicine; Referring Provider Internal Medicine; Visit Provider Internal Medicine
DX: I12.9 Hypertensive chronic kidney disease with stage 1 through stage 4 chronic kidney disease, or unspecified chronic kidney disease (principal); N18.30 Chronic kidney disease, stage 3 unspecified
CPT/HCPCS: 36415; 80069; 82306; 83970